=== PATIENT | female | born 1975 ===

== ENCOUNTER → 2022-10-14 10:43 | Outpatient (BNVA) | payer MEDICAID, SELFPAY | PROVIDERS: Visit Provider Internal Medicine | DX: M79.10 Myalgia, unspecified site (principal); G43.909 Migraine, unspecified, not intractable, without status migrainosus; Z79.899 Other long term (current) drug therapy; M47.892 Other spondylosis, cervical region | CPT/HCPCS: 36415; 72040; 72100; 80053; 82533; 82550; 83516; 84443; 85025; 85651; 86140; 86160; 86162; 86200; 86235; 86255; 86376; 86704; 86803; 87340 ==

== ENCOUNTER 2022-10-20 10:46 | Outpatient (CLI) | payer MEDICAID, SELFPAY ==
--- NOTE | 2022-10-20 10:52 | MM_ITS ---
WS: [id number] DIAGNOSTIC BILATERAL DIGITAL BREAST TOMOSYNTHESIS MAMMOGRAPHY WITH CAD LEFT breast ultrasound, limited. HISTORY: LT BR LUMP COMPARISON: 11/06/2020 TECHNIQUE: Bilateral craniocaudad, mediolateral oblique, and mediolateral views are submitted with to mosdemetrius and SM. Computer aided detection utilized. Breast composition: There are scattered areas of fibroglandular density. Palpable marker is placed al ke the medial upper LEFT breast near 10:00. No underlying mass identified. There are few adjacent ca lcifications within the LEFT breast. No distortion. LEFT breast ultrasound, limited. Palpable area at 10:00 corresponds to a very small simple cyst measuring 4 x 4 x 4 mm. There is no in creased vascularity or solid component. IMPRESSION: MM/[place] [id number] BI-RADS: 2-Benign FOLLOW UP: 1 Year Follow-up Palpable area LEFT breast corresponds to a 4 mm simple cyst.
== END 2022-10-20 10:47 | disposition home or self-care (01) ==
PROVIDERS: PCP Family Medicine; Visit Provider Nurse Practitioner Family
DX: N63.22 Unspecified lump in the left breast, upper inner quadrant (principal)
CPT/HCPCS: 76642; 77062; G0279